=== PATIENT | female | born 1930 | race Caucasian/White ===

== ENCOUNTER → 2016-12-11 | Outpatient (CLI) | payer MEDICARE, OTHER ==
[~2016-12-11] MED LIST: ACTOS PO; AMIODARONE PO; B 12; CALCIUM500 MG; COUMADIN PO; COUMADIN5 MG; DILTIAZEM ER120 M1; EPIPEN0.3 MG/0.1; FISH OIL500 M1; HCTZ PO; OSTEO BI FLEX; POTASSIUM PO; RESTORIL15 MG; RYTHMOL150 MG; SINGULAIR PO; TEGRETOL100 MG PO; TRICOR PO; VIT E; ZOCOR PO
--- NOTE | ~2016-12-11 | MY29 ---
[facility] A Service of [facility] RADIOLOGY TEXT RESULTS PATIENT: MONA RENTERIA LOCATION: [facility] : 32 UNIT #: [id number] AGE: [address]: Avril Blankenship MD SEX: F ORDER DR: [id number] [facility] [address] [place], [place] [address] [id number] MR#: [id number] Acc #: [id number] NAME: MONA RENTERIA : 1930 SEX: F STUDY DATE/TIME: 12/11/2016 14:50 UNIT: [facility] ROOM: STUDY DESCRIPTION: MY RONAK SCREENING W/ CAD BILAT Attending Physician: Avril Blankenship M.D. Referring Physician: Avril Blankenship M.D. Ordering Physician: Avril Blankenship M.D. Primary Care Physician: Avril Blankenship M.D. MEDICAL IMAGING REPORT This report is preliminary unless electronic signature is present EXAM Digital screening mammogram, 12/11/2016, [facility]. HISTORY 86-year-old woman positive family history, 2 aunts. Recent bilateral diffuse breast pain. Annual screen. COMPARISON 02/23/2009, 07/27/2012 TECHNIQUE Digital imaging of each breast was completed utilizing screening protocol. Review includes FDA-approved CAD device. FINDINGS Breast parenchyma is fatty replaced bilaterally. Pacemaker is again noted upper left breast location visualized on MLO view only. There is no interval occurring breast mass. I see no suspicious microcalcifications and no architectural deformity. IMPRESSION Negative mammogram. Annual screening is optional at this age. Patients over the age of 40 are entered into a reminder system with target due date for the next mammogram. A result letter will also be sent to the patient. BIRADS: 1 Negative Dictated by... Alber Jarvis M.D. [facility] A Service [facility] RADIOLOGY TEXT RESULTS PATIENT: MONA RENTERIA LOCATION: [facility] : 32 UNIT #: [id number] AGE: [address]: Avril Blankenship MD SEX: F ORDER DR: THIS IS AN ELECTRONICALLY VERIFIED REPORT Alber Jarvis M.D. at 12/12/2016 8:02 AM NELDA/shakeel TD: 12/11/2016 16:16 JOB #: [id number] MEDICAL IMAGING REPORT Page 1 of 1 COPY
== END | disposition home or self-care (01) ==
LOC: CWCC 14:19
DX: Z12.31 Encounter for screening mammogram for malignant neoplasm of breast (principal); Z80.3 Family history of malignant neoplasm of breast; Z95.0 Presence of cardiac pacemaker
CPT/HCPCS: G0202